=== PATIENT | female | born 1945 | race Caucasian/White ===

== ENCOUNTER 2016-11-05 06:27 | Emergency (ER) | payer MEDICARE, OTHER ==
[2016-11-18] MEDS ORDERED: NORCO1 TA2 PO (01:31)
[2016-11-18] MEDS ORDERED: CYMBALTA30 PO (01:31)
[2016-11-18] MEDS ORDERED: PRILO PO (01:31)
[2016-11-18] MEDS ORDERED: LEVOTHYROXIN112 MCG PO (01:32)
[2016-11-18] MEDS ORDERED: L40 PO (01:32)
[2016-11-18] MEDS ORDERED: ASAB PO (01:33)
[2016-11-18] MEDS ORDERED: KLOR-CON 1010 MEQ PO (01:33)
[2016-11-18] MEDS ORDERED: CRANBERRY300 MG PO (01:34)
[2016-11-18] MEDS ORDERED: MULTI-VIT HP PO (01:34)
[2016-11-18] MEDS ORDERED: [UNRECOGNIZED DRUG - OTHER] PO (01:34)
[2016-11-18] MEDS ORDERED: PROMEGA PO (01:34)
[2016-11-18] MEDS ORDERED: CO Q-10 PO (01:35)
[2016-11-18] MEDS ORDERED: FRIENDLY FLORA PO (01:36)
[2016-11-21] MEDS ORDERED: FLAG500TAB PO (10:32)
[2016-11-21] MEDS ORDERED: LEVAQUIN5T PO (10:32)
[2016-11-21] MEDS ORDERED: ZOFRAN ODT4 MG PO (10:34)
== END 2016-11-05 09:17 | disposition home or self-care (01) ==
LOC: ER 06:27
DX: M54.16 Radiculopathy, lumbar region (principal); I10 Essential (primary) hypertension; Z88.5 Allergy status to narcotic agent; Z88.8 Allergy status to other drugs, medicaments and biological substances
CPT/HCPCS: 72131; 96372; 99284; J1170